=== PATIENT | male | born 1995 | race Two or more races ===

== ENCOUNTER 2017-04-08 11:37 | Emergency (ER) | payer SELFPAY ==
[2017-04-08] MEDS: IBUPROFEN 800 MG TABLET. PO (13:41)
[2017-04-08 14:40] LABS: INFLUENZA A PATIENT NEGATIVE (NEGATIVE); INFLUENZA B PATIENT NEGATIVE (NEGATIVE); OBC FLU VALID
== END 2017-04-08 15:00 | disposition home or self-care (01) ==
LOC: ER 11:37
DX: B34.9 Viral infection, unspecified (principal)
CPT/HCPCS: 71046; 87804; 87804-59; 93005; 99285-25